=== PATIENT | female | born 1955 | race Caucasian/White ===

== ENCOUNTER 2018-03-02 20:29 | Emergency (ER) | payer MEDICARE, MEDICAID ==
[~2018-03-02] VITALS: Ht 152.4 cm; Wt 54.4 kg
--- NOTE | 2018-03-02 20:33 | NUR ---
PT BIBPA for Altered Mental Status and refusing antibiotic for DX of UTI. PT AXOX1, non-verbal, obeys commands. Respirations even and unlabored. VSS. PT put on the monitor and waiting eval from ER provider.
[2018-03-02 21:02] LABS: BASOPHILS # (AUTO) 0.1 /CMM (0.0-0.2); BASOPHILS % (AUTO) 1.5 % (0.0-2.0); EOSINOPHILS % (AUTO) 2.3 % (0.0-6.0); HEMATOCRIT 42 % (33-45); HEMOGLOBIN 14.3 g/dL (11.5-14.8); LYMPHOCYTES # (AUTO) 1.4 /CMM (0.8-4.8); LYMPHOCYTES % (AUTO) 25.7 % (20.0-44.0); MEAN CORPUSCULAR HGB CONC 34 g/dl (31.0-36.0); MEAN CORPUSCULAR VOLUME 89 fL (82-100); MONOCYTES # (AUTO) 0.4 /CMM (0.1-1.30); NEUTROPHILS # (AUTO) 3.4 /CMM (1.8-8.9); NEUTROPHILS % (AUTO) 63.5 % (43.0-81.0); PLATELET COUNT (AUTO) 154 /CMM (150-450); RED BLOOD CELL COUNT(AUTO) 4.72 MIL/uL (4.0-5.2); WHITE BLOOD COUNT (AUTO) 5.3 K/uL (4.3-11.0)
[2018-03-02] MEDS: IV NS 0.9% 1,000 ML BAG IV ONE (21:04)
[2018-03-02] MEDS: PIPERACILLIN /TAZOBACTAM 3.375 G in IV D5W 50 ML IV ONE (21:05)
[2018-03-02] MEDS ORDERED: LORAZEPAM INJ 2 MG/ML VIAL ONE (21:16)
--- NOTE | 2018-03-02 21:18 | NUR ---
Pt taken to CT, refusing to lay down.
[2018-03-02 21:22] LABS: CALCIUM, SERUM 9.3 mg/dL (8.5-10.1); CARBON DIOXIDE 29 mmol/L (21-32); CHLORIDE 102 mmol/L (98-107); CREATININE 0.8 mg/dL (0.6-1.3); GLUCOSE 115 mg/dL (74-106); POTASSIUM 3.7 mmol/L (3.5-5.1); SODIUM SERUM 139 mmol/L (136-145); UREA NITROGEN, BLOOD 18 mg/dL (7-18)
[2018-03-02 21:29] LABS: ALANINE AMINOTRANSFERASE 58 U/L (12-78); ALBUMIN 3.5 g/dL (3.4-5.0); ALCOHOL, BLOOD < 3 mg/dL (0-0); ALKALINE PHOSPHATASE 95 U/L (46-116); ASPARTATE AMINOTRANSFERASE 48 U/L (15-37); BILIRUBIN,DIRECT 0.3 mg/dL (0.0-0.2); BILIRUBIN,TOTAL 0.9 mg/dL (0.2-1.0); TOTAL PROTEIN, SERUM 8.2 g/dL (6.4-8.2)
--- NOTE | 2018-03-02 21:34 | NUR ---
PT more alert and aware of surroundings, verbal responsive. Able to state the reason she is here, pt stating she was having a panic attack earlier, now pt is calm and collective. made aware.
--- NOTE | 2018-03-02 21:40 | NUR ---
CALLED [facility] TRANSPORT ETA [phone] TRIP #: [id number]
[2018-03-02 21:41] LABS: SERUM AMMONIA 10 umol/L (11-32)
[2018-03-02] MEDS: LORAZEPAM INJ 2 MG/ML VIAL IV ONE (21:41)
[2018-03-02 22:14] LABS: THYROID STIMULATING HORMONE 2.493 uIU/mL (0.358-3.74)
--- NOTE | 2018-03-02 23:01 | NUR ---
GAVE REPORT TO JOSE MARTIN AT [facility] FOR KLEBER. AWARE OF PT'S DISPOSITION AND NEW ORDERS FOR PT.
[2018-03-02 23:05] VITALS: BP 90/52
--- NOTE | 2018-03-02 23:54 | NUR ---
PT TRANSPORTED BACK TO [facility] VIA PRIVATE AMBULANCE WITH 2EMTS, PT LEFT IN STABLE CONDITION.
== END 2018-03-03 ==
LOC: ER 20:35
DX: F41.9 Anxiety disorder, unspecified (principal); N39.0 Urinary tract infection, site not specified; F03.90 Unspecified dementia, unspecified severity, without behavioral disturbance, psychotic disturbance, mood disturbance, and anxiety; F32.9 Major depressive disorder, single episode, unspecified; G47.00 Insomnia, unspecified
CPT/HCPCS: 36415; 70450-TC; 71045-TC; 80048-TC; 80076-TC; 82140-TC; 83605-TC; 84443-TC; 85025-TC; 85730-TC; 87040-TC; G0480; J2060; J2543; J7030; J7060

== ENCOUNTER 2018-03-27 17:17 | Inpatient (IN) | payer MEDICARE, MEDICAID ==
[~2018-03-27] VITALS: Ht 152.4 cm; Wt 65.8 kg
--- NOTE | 2018-03-27 18:00 | NUR ---
PATIENT BIB AMBULANCE, NOTED PATIENT IS CONFUSED. ON ROOM AIR, BREATHING EVENLY AND UNLABORED. CONNECTED TO THE MONITOR AND PULSE OX. IV LINE INITIATED, AND BLOOD DRAWNED. KEPT COMFORTABLE, WILL CONTINUE TO MONITOR ACCORDINGLY.
[2018-03-27] MEDS ORDERED: ACETAMINOPHEN ES 500 MG TABLET ONE (18:08)
[2018-03-27 18:14] LABS: BASOPHILS # (AUTO) 0.1 /CMM (0.0-0.2); BASOPHILS % (AUTO) 1.4 % (0.0-2.0); EOSINOPHILS % (AUTO) 2.4 % (0.0-6.0); HEMATOCRIT 35 % (33-45); HEMOGLOBIN 11.8 g/dL (11.5-14.8); LYMPHOCYTES % (AUTO) 22.4 % (20.0-44.0); MEAN CORPUSCULAR HGB CONC 34 g/dl (31.0-36.0); MEAN CORPUSCULAR VOLUME 90 fL (82-100); MONOCYTES # (AUTO) 0.4 /CMM (0.1-1.30); MONOCYTES % (AUTO) 7.7 % (2.0-12.0); NEUTROPHILS # (AUTO) 3.1 /CMM (1.8-8.9); NEUTROPHILS % (AUTO) 66.1 % (43.0-81.0); PLATELET COUNT (AUTO) 295 /CMM (150-450); RED BLOOD CELL COUNT(AUTO) 3.92 MIL/uL (4.0-5.2); WHITE BLOOD COUNT (AUTO) 4.7 K/uL (4.3-11.0)
[2018-03-27 18:16] LABS: APPEARANCE,URINE Clear (CLEAR); BILIRUBIN,URINE Negative (NEGATIVE); BLOOD, URINE Negative Ery/uL (NEGATIVE); COLOR,URINE Yellow (YELLOW); KETONES,URINE Trace (NEGATIVE); LEUKOCYTE ESTERASE ,URINE Trace (NEGATIVE); NITRITE, URINE Negative (NEGATIVE); PROTEIN,URINE Negative (NEGATIVE); UGLUCOSE Negative (NEGATIVE); UROBILINOGEN,URINE >=8.0 EU/dL (0.2)
[2018-03-27] MEDS ORDERED: ACETAMINOPHEN ES 500 MG TABLET PO ONE (18:30)
[2018-03-27] MEDS ORDERED: IV NS 0.9% 1,000 ML BAG IV ONE ×2 (18:30→19:30)
[2018-03-27 18:41] LABS: ALANINE AMINOTRANSFERASE 29 U/L (12-78); ALBUMIN 1.9 g/dL (3.4-5.0); ALKALINE PHOSPHATASE 71 U/L (46-116); ASPARTATE AMINOTRANSFERASE 29 U/L (15-37); BILIRUBIN,DIRECT 0.2 mg/dL (0.0-0.2); BILIRUBIN,TOTAL 0.5 mg/dL (0.2-1.0); CARBON DIOXIDE 29 mmol/L (21-32); CHLORIDE 107 mmol/L (98-107); CREATININE 0.7 mg/dL (0.6-1.3); GLUCOSE 93 mg/dL (74-106); POTASSIUM 3.6 mmol/L (3.5-5.1); SODIUM SERUM 141 mmol/L (136-145); TOTAL PROTEIN, SERUM 6.3 g/dL (6.4-8.2); UREA NITROGEN, BLOOD 8 mg/dL (7-18)
[2018-03-27 18:45] LABS: BACTERIA,URINE Few /HPF (None Seen); RBC,URINE NONE SEEN /HPF (0-2); SQUAMOUS EPITHELIAL CELL,UR Few /HPF (None Seen)
--- NOTE | 2018-03-27 19:23 | NUR ---
ENDORSED TO JHONATAN RN FOR KLEBER.
--- NOTE | 2018-03-27 19:24 | NUR ---
RECEIVED REPORT FROM HAMMAD MCINTOSH FOR KLEBER. PT RESTING IN BED WITH NO S/S NO ACUTE DISTRESS NOTED. WILL CONTINUE TO MONITOR PT FOR SAFETY AND COMFORT.
--- NOTE | 2018-03-27 20:47 | NUR ---
REPORT GIVEN TO SUZI GONZALEZ FOR KLEBER.
[2018-03-27 21:00] VITALS: BP 141/83
--- NOTE | 2018-03-27 21:00 | NUR ---
PHOTOGRAPHIC PROCESS WORKERTABLET REPAIR NOTES, RECEIVED PATIENT FROM ER DEPARTMENT VIA STRETCHER ACCOMPANIED BY 2 STAFF IN STABLE CONDITION, NO ACUTE DISTRESS NOTED AT THIS TIME, AWAKE AND ALERT ONLY TO NAME, BREATHING EVEN AND UNLABORED, NO S/S OF SOB, ON 2LPM VIA NC, UNDER MEDICAL SERVICES OF DR PRESTON MARQUEZ, WITH ADMITTING DIAGNOSES OF LACTIC ACIDOSIS AND POSSIBLE UTI/PNA, SKIN AFEBRILE AND INTACT, SACRA REDNESS NOTED, PIV ACCESS IN RIGHT AND LEFT AC PATENT AND INTACT, BED BATH PROVIDED UPON ADMISSION, DENIES PAIN OR DISCOMFORT, DRY AND CLEAN AND WELL REPOSITIONED, CALL LIGHT W/I REACH, WILL CONTINUE TO MONITOR CLOSELY AND F/U WITH MD FOR FURTHER ORDERS.
[2018-03-27] MEDS ORDERED: MAG HYDROX/AL HYDROX/SIMETH 30 ML UDC PO PRN (21:30)
[2018-03-27] MEDS ORDERED: MAGNESIUM HYDROXIDE 30 ML UDC PO PRN (21:30)
[2018-03-27] MEDS ORDERED: ONDANSETRON HCL/PF 4 MG/2 ML VIAL IVP PRN (21:30)
[2018-03-27] MEDS ORDERED: ZOLPIDEM TARTRATE 5 MG TABLET PO PRN (21:30)
[2018-03-27] MEDS ORDERED: HYDROCODONE/APAP 5/325MG 1 EACH TABLET PO PRN (21:30)
[2018-03-27] MEDS ORDERED: ACETAMINOPHEN 325 MG TABLET PO PRN (21:30)
[2018-03-27] MEDS ORDERED: Z GUARD REMEDY 2 OZ OINT TP PRN (21:30)
[2018-03-27] MEDS ORDERED: MEROPENEM 500 MG VIAL IV ONE (23:19)
[2018-03-27] MEDS: MEROPENEM 500 MG in IV NS 0.9% 50 ML IV SCH (23:20)
[2018-03-27] MEDS: IV NS 0.9% 1,000 ML IV PRN (23:21)
[2018-03-28] VITALS: BP 95/56
[2018-03-28 04:00] VITALS: BP 139/74
[2018-03-28] MEDS: ENOXAPARIN SODIUM 40 MG/0.4 ML DISP.SYRIN SQ SCH (04:59)
[2018-03-28] MEDS ORDERED: MEROPENEM 500 MG VIAL IV ONE (05:23)
[2018-03-28] MEDS: MEROPENEM 500 MG in IV NS 0.9% 50 ML IV SCH ×3 (05:27→21:13)
[2018-03-28 06:37] LABS: CALCIUM, SERUM 7.5 mg/dL (8.5-10.1); CREATININE 0.5 mg/dL (0.6-1.3); EOSINOPHILS % (AUTO) 2.5 % (0.0-6.0); HEMATOCRIT 32 % (33-45); HEMOGLOBIN 10.8 g/dL (11.5-14.8); LYMPHOCYTES % (AUTO) 24.4 % (20.0-44.0); MEAN CORPUSCULAR HGB CONC 34 g/dl (31.0-36.0); MEAN CORPUSCULAR VOLUME 88 fL (82-100); MONOCYTES # (AUTO) 0.3 /CMM (0.1-1.30); MONOCYTES % (AUTO) 7.6 % (2.0-12.0); NEUTROPHILS # (AUTO) 2.6 /CMM (1.8-8.9); NEUTROPHILS % (AUTO) 64.5 % (43.0-81.0); PHOSPHORUS 2.5 mg/dL (2.5-4.9); PLATELET COUNT (AUTO) 214 /CMM (150-450); POTASSIUM 3.7 mmol/L (3.5-5.1); RED BLOOD CELL COUNT(AUTO) 3.62 MIL/uL (4.0-5.2); WHITE BLOOD COUNT (AUTO) 4.1 K/uL (4.3-11.0)
--- NOTE | 2018-03-28 06:45 | NUR ---
ENVIRONMENTAL EPIDEMIOLOGISTFORECLOSURE SPECIALIST NOTES, PATIENT SLEEPING AT THIS TIME, , BREATHING EVEN AND UNLABORED, NO S/S OF SOB, ON 2LPM VIA NC, SKIN AFEBRILE AND INTACT, PIV ACCESS IN RIGHT AND LEFT AC PATENT AND INTACT, NS 0.9% INFUSING WELL AND PATIENT TOLERATED WELL, DURING THE NIGHT ON CONTINUOUS MONITORING FOR POSSIBLE URINARY RETENTION, PER YFN, PATIENT VOID THROUGHOUT THE SHIFT X4, INFORM YFN AND PER HER NOT FC AT THIS TIME, DRY AND CLEAN AND WELL REPOSITIONED, CALL LIGHT W/I REACH, NPO PER YFN TILL SWALLOW EVAL DONE, WILL ENDORSE TO ONCOMING NURSE FOR CONTINUITY OF CARE. Addendum: 03/28/18 at 2009 by JEROME GALVIN RN CLOSING NOTES.
[2018-03-28] MEDS ORDERED: TEMA7.5C12 PO (07:53)
[2018-03-28] MEDS ORDERED: ALLA266C2 TP (07:53)
[2018-03-28] MEDS ORDERED: ARIP5TAB10 PO (07:53)
[2018-03-28] MEDS ORDERED: MAG30ORA PO (07:53)
[2018-03-28] MEDS ORDERED: VENL150C2 PO (07:53)
[2018-03-28] MEDS ORDERED: DOCU-141 PO (07:53)
[2018-03-28] MEDS ORDERED: MERO500V IV (07:53)
[2018-03-28] MEDS ORDERED: LORA0.5T PO (07:53)
[2018-03-28] MEDS ORDERED: ACET-868 PO (07:53)
[2018-03-28] MEDS ORDERED: TRAZ-182 PO (07:53)
[2018-03-28 08:00] VITALS: BP 120/56
--- NOTE | 2018-03-28 08:00 | NUR ---
MS RN NOTES PATIENT IN BED RESTING ALERT, ORIENTED X1 CONFUSED. PATIENT CHOOSES TO SPEAK OCCASIONALLY. BED IN LOW LOCKED POSITION. CALL LIGHT WITHIN REACH. WILL CONTINUE TO MONITOR.
--- NOTE | 2018-03-28 11:00 | NUR ---
RN NOTES PATIENT EVALUATED BY SPEECH THERAPIST CLEARED FOR PUREED DIET. ORDERS PLACED.
[2018-03-28 12:00] VITALS: BP 106/60
--- NOTE | 2018-03-28 12:41 | NUR ---
CHARGE NOTES DC TELEMETRY PER DR. JACKSON
[2018-03-28] MEDS: IV NS 0.9% 1,000 ML IV PRN (14:55)
[2018-03-28 16:00] VITALS: BP_SYST 103; BP_SYST 110; BP_DIAS 54; BP_DIAS 69
[2018-03-28] MEDS: ENSURE ENLIVE 237 ML LIQUID (VANILLA) PO SCH (16:56)
--- NOTE | 2018-03-28 19:01 | NUR ---
MS RN NOTES PATIENT IN BED RESTING NO SOB OR ACUTE DISTRESS NOTED. PATIENT ALERT, ORIENTED X1. ALL DUE MEDICATIONS ADMINISTERED, ALL NEEDS MET. ZOHRA INFORMED THAT PATIENTS MED RECON NEEDS TO BE REVIEWED. ENDORSED CARE TO PM SHIFT.
--- NOTE | 2018-03-28 19:30 | NUR ---
SUPPORT SERVICE TECH INITIAL NOTES, PATIENT AWAKE A/O TO SELF, RESISTANT TO CARE AT TIMES, ENCOURAGEMENT AND REASSURANCE PROVIDED, BREATHING EVEN AND UNLABORED, NO S/S OF SOB, ON 2LPM VIA NC, , PIV ACCESS IN RIGHT AND LEFT AC PATENT AND INTACT, NS 0.9% INFUSING WELL AND PATIENT TOLERATED WELL, DRY AND CLEAN AND WELL REPOSITIONED, CALL LIGHT W/I REACH, BED LOCKED AND IN LOW POSITION, WILL CONTINUE TO MONITOR CLOSELY.
[2018-03-28 20:00] VITALS: BP 133/85
[2018-03-29 04:00] VITALS: BP 110/61
[2018-03-29] MEDS: MEROPENEM 500 MG in IV NS 0.9% 50 ML IV SCH (05:08)
[2018-03-29] MEDS: ENOXAPARIN SODIUM 40 MG/0.4 ML DISP.SYRIN SQ SCH (05:09)
[2018-03-29] MEDS: IV NS 0.9% 1,000 ML IV PRN (06:36)
[2018-03-29 06:38] LABS: CALCIUM, SERUM 8.1 mg/dL (8.5-10.1); CREATININE 0.5 mg/dL (0.6-1.3); POTASSIUM 3.8 mmol/L (3.5-5.1)
[2018-03-29 06:41] LABS: EOSINOPHILS % (AUTO) 1.6 % (0.0-6.0); HEMATOCRIT 35 % (33-45); HEMOGLOBIN 11.7 g/dL (11.5-14.8); LYMPHOCYTES # (AUTO) 1.2 /CMM (0.8-4.8); LYMPHOCYTES % (AUTO) 22.7 % (20.0-44.0); MEAN CORPUSCULAR HGB CONC 34 g/dl (31.0-36.0); MEAN CORPUSCULAR VOLUME 89 fL (82-100); MONOCYTES # (AUTO) 0.3 /CMM (0.1-1.30); MONOCYTES % (AUTO) 5.4 % (2.0-12.0); NEUTROPHILS # (AUTO) 3.5 /CMM (1.8-8.9); NEUTROPHILS % (AUTO) 69.3 % (43.0-81.0); PLATELET COUNT (AUTO) 256 /CMM (150-450); RED BLOOD CELL COUNT(AUTO) 3.92 MIL/uL (4.0-5.2); WHITE BLOOD COUNT (AUTO) 5.1 K/uL (4.3-11.0)
--- NOTE | 2018-03-29 06:50 | NUR ---
RIB STIFFENER AND HEEL DIPPER ENDING NOTES, PATIENT SLEEPING AT THIS TIME, BUT EASILY AROUSABLE TO VERBAL STIMULI, BREATHING EVEN AND UNLABORED, NO S/S OF SOB, ON 2LPM VIA NC, , PIV ACCESS IN RIGHT AND LEFT AC PATENT AND INTACT, NS 0.9% INFUSING WELL AND PATIENT TOLERATED WELL, DRY AND CLEAN AND WELL REPOSITIONED, CALL LIGHT W/I REACH, BED LOCKED AND IN LOW POSITION, WITH EXCELLENT URINE OUTPUT X6 VOIDS DURING THE NIGHT, NO CHANGE IN CONDITION, WILL ENDORSE CONTINUITY OF CARE TO ONCOMING NURSE.
--- NOTE | 2018-03-29 07:00 | NUR ---
MS RN NOTES RECEIVED PT IN BED, PT STATED: "I JUST WANT TO SLEEP." NO S/SX OF DISTRESS. ON ROOM AIR AT 95%. PER PM SHIFT PT HAD 6 WET DIAPERS AND NOT RETAINING URINE. RAC/LAC IV SITES NO S/SX OF INFECTION. BED IN LOCKED/LOWEST POSITION. CALL LIGHT IN REACH. WILL CONT TO MONITOR.
[2018-03-29 08:00] VITALS: BP 100/58
[2018-03-29] MEDS: ENSURE ENLIVE 237 ML LIQUID (VANILLA) PO SCH ×3 (08:32→17:51)
[2018-03-29 12:00] VITALS: BP 116/68
[2018-03-29] MEDS: MEROPENEM 500 MG in IV NS 0.9% 100 ML IV SCH ×2 (12:39→21:02)
--- NOTE | 2018-03-29 14:10 | NUR ---
MS RN NOTES PT REFUSES CARE, REPOSITIONING. PT EVALS. PT IS WITHDRAWN. HAS POOR APPETITE. DISCUSSED WITH DR CARRERA.
--- NOTE | 2018-03-29 15:00 | NUR ---
MS RN NOTES NOTIFIED PT OF NEED TO CATHETERIZE FOR URINE CX PER MD ORDER. PT REFUSED. PT STATES: "I JUST WANT TO BE LEFT ALONE. IT'S TOO EARLY IN THE MORNING" . PT IS A/OX1. PT USES DIAPER FOR INCONTINENCE. WILL ENDORSE TO PM SHIFT.
[2018-03-29 16:00] VITALS: BP 114/70
--- NOTE | 2018-03-29 19:00 | NUR ---
MS RN NOTES PT RESTING IN BED; ENDORSED PT TO PM SHIFT FOR KLEBER. NO S/SX OF DISTRESS NOTED. BED IN LOCKED/LOWEST POSITION. CALL LIGHT IN REACH.
[2018-03-29 20:00] VITALS: BP 129/77
[2018-03-30] MEDS: IV NS 0.9% 1,000 ML IV PRN (01:37)
[2018-03-30 04:00] VITALS: BP 115/46
[2018-03-30] MEDS: ENOXAPARIN SODIUM 40 MG/0.4 ML DISP.SYRIN SQ SCH (05:04)
[2018-03-30] MEDS: MEROPENEM 500 MG in IV NS 0.9% 100 ML IV SCH ×2 (05:05→12:27)
[2018-03-30 07:24] LABS: BASOPHILS % (AUTO) 0.5 % (0.0-2.0); HEMATOCRIT 41 % (33-45); HEMOGLOBIN 13.6 g/dL (11.5-14.8); LYMPHOCYTES # (AUTO) 1.3 /CMM (0.8-4.8); LYMPHOCYTES % (AUTO) 18.4 % (20.0-44.0); MEAN CORPUSCULAR HGB CONC 33 g/dl (31.0-36.0); MEAN CORPUSCULAR VOLUME 89 fL (82-100); MONOCYTES # (AUTO) 0.4 /CMM (0.1-1.30); MONOCYTES % (AUTO) 5.4 % (2.0-12.0); NEUTROPHILS # (AUTO) 5.4 /CMM (1.8-8.9); NEUTROPHILS % (AUTO) 74.7 % (43.0-81.0); PLATELET COUNT (AUTO) 404 /CMM (150-450); RED BLOOD CELL COUNT(AUTO) 4.59 MIL/uL (4.0-5.2); WHITE BLOOD COUNT (AUTO) 7.3 K/uL (4.3-11.0)
--- NOTE | 2018-03-30 08:00 | NUR ---
RN NOTES PT AWAKE IN BED; VERBALLY RESPONSIVE. NO INDISCATION OF ANY PAIN OR DISCOMFORT NOTED. RECEIVED PT WITH NO IV ACCESS, ATTEMPTED BY PT REFUSED. PT ALSO REFUSED BREAKFAST WHEN OFFERED. SAFETY ENSURED WITH CALL LIGHT WITHIN REACH.
[2018-03-30] MEDS: ENSURE ENLIVE 237 ML LIQUID (VANILLA) PO SCH ×3 (09:15→17:10)
--- NOTE | 2018-03-30 12:01 | NUR ---
rn notes pt seen and assessed by Dr Saini; informed MD that pt is uncooperative, no iv access and refused placement
--- NOTE | 2018-03-30 12:28 | NUR ---
rn notes not able to administer scheduled ivatb, pt has no iv access and refused placement; Dr Saini in the unit and aware
--- NOTE | 2018-03-30 18:23 | NUR ---
rn notes pt refused skin check / assessment prior to discharge. tel report given to HAMMAD Lou ([facility]) ; med list faxed as requested. pt awake and alert; nad, no c/o pain made.
--- NOTE | 2018-03-30 18:57 | NUR ---
rn dc notes discharge pt to [facility] via ambulance in stable condition.
== END 2018-03-30 18:30 | DRG 871 ==
LOC: ER 17:22 → MEDSG1 20:25 → TELE1 20:59 → MEDSG1 03-28 11:57
PROVIDERS: ADMIT Nurse Practitioner Acute Care; ATTEND Family Medicine
DX: A41.9 Sepsis, unspecified organism (principal); R53.2 Functional quadriplegia; E43 Unspecified severe protein-calorie malnutrition; J18.9 Pneumonia, unspecified organism; N39.0 Urinary tract infection, site not specified; E87.2 Acidosis; D68.59 Other primary thrombophilia; F23 Brief psychotic disorder; Z16.12 Extended spectrum beta lactamase (ESBL) resistance; Z87.440 Personal history of urinary (tract) infections; F41.9 Anxiety disorder, unspecified; F32.9 Major depressive disorder, single episode, unspecified; G31.84 Mild cognitive impairment of uncertain or unknown etiology; E83.51 Hypocalcemia; B96.20 Unspecified Escherichia coli [E. coli] as the cause of diseases classified elsewhere; R62.7 Adult failure to thrive
CPT/HCPCS: 36415; 71045-TC; 80048-TC; 80076-TC; 81000-TC; 83605-TC; 83735-TC; 84100-TC; 84484-TC; 85025-TC; 85730-TC; 87040-TC; 87086-TC; 92611-TC; A4216; G0378; J1650; J2185; J7030

== ENCOUNTER 2019-09-07 23:05 | Inpatient (IN) | payer MEDICARE, OTHER ==
[~2019-09-07] VITALS: Ht 152.4 cm; Wt 64.4 kg
[~2019-09-07 23:05] MED LIST: ACET-868 PO; ALLA266C2 TP; ARIP5TAB10 PO; DOCU-141 PO; LORA0.5T PO; MAG30ORA PO; MERO500V21 IV; TEMA7.5C12 PO; TRAZ-182 PO; VENL150C2 PO
--- NOTE | 2019-09-07 23:20 | NUR ---
PATIENT CAME TO ER BED 6 C/O FEVER 1x HOUR AGO. PATIENT DENIES ANY OTHER ISSUES BESIDES THE LUMP ON HER LEFT FOREARM SINCE SHE WAS LITTLE, SHE STATES THAT THEY ARE FAT DEPOSITS. AAOX4. NO SOB. BREATHING EVENLY AND UNLABORED ON ROOM AIR. CONNECTED TO MONITOR.
[2019-09-07] MEDS ORDERED: ACETAMINOPHEN 325 MG TABLET PO ONE (23:30)
[2019-09-07 23:44] LABS: BASOPHILS # (AUTO) 0.1 /CMM (0.0-0.2); BASOPHILS % (AUTO) 0.6 % (0.0-2.0); HEMATOCRIT 42 % (33-45); HEMOGLOBIN 13.7 g/dL (11.5-14.8); LYMPHOCYTES # (AUTO) 1.1 /CMM (0.8-4.8); LYMPHOCYTES % (AUTO) 7.4 % (20.0-44.0); MEAN CORPUSCULAR HGB CONC 33 g/dl (31.0-36.0); MEAN CORPUSCULAR VOLUME 92 fL (82-100); MONOCYTES # (AUTO) 0.6 /CMM (0.1-1.30); MONOCYTES % (AUTO) 4.1 % (2.0-12.0); NEUTROPHILS # (AUTO) 13.3 /CMM (1.8-8.9); NEUTROPHILS % (AUTO) 87.9 % (43.0-81.0); PLATELET COUNT (AUTO) 95 /CMM (150-450); RED BLOOD CELL COUNT(AUTO) 4.55 MIL/uL (4.0-5.2); WHITE BLOOD COUNT (AUTO) 15.1 K/uL (4.3-11.0)
--- NOTE | 2019-09-07 23:50 | NUR ---
PATIENT AMBULATED TO THE RESTROOM WITH ASSISTANCE
--- NOTE | 2019-09-07 23:57 | NUR ---
URINE COLLECTED AND SENT TO LAB.
[2019-09-08] MEDS ORDERED: VANCOMYCIN 1 GM in IV D5W 250 ML IV ONE ×2
[2019-09-08] MEDS ORDERED: VANCOMYCIN 1 GM VIAL ONE (00:09)
[2019-09-08] MEDS ORDERED: ACETAMINOPHEN ES 500 MG TABLET ONE (00:12)
[2019-09-08 00:23] LABS: APPEARANCE,URINE CLOUDY (CLEAR); BILIRUBIN,URINE NEGATIVE (NEGATIVE); BLOOD, URINE MODERATE Ery/uL (NEGATIVE); COLOR,URINE ORANGE (YELLOW); KETONES,URINE TRACE (NEGATIVE); LEUKOCYTE ESTERASE ,URINE TRACE (NEGATIVE); NITRITE, URINE POSITIVE (NEGATIVE); PROTEIN,URINE 30 mg/dl (NEGATIVE); UGLUCOSE NEGATIVE (NEGATIVE)
[2019-09-08 00:31] LABS: ALANINE AMINOTRANSFERASE 58 U/L (12-78); ALBUMIN 3.1 g/dL (3.4-5.0); ALKALINE PHOSPHATASE 97 U/L (46-116); ASPARTATE AMINOTRANSFERASE 41 U/L (15-37); BILIRUBIN,DIRECT 0.4 mg/dL (0.0-0.2); CALCIUM, SERUM 9.2 mg/dL (8.5-10.1); CARBON DIOXIDE 26 mmol/L (21-32); CHLORIDE 104 mmol/L (98-107); CREATININE 1.1 mg/dL (0.6-1.3); GLUCOSE 150 mg/dL (74-106); POTASSIUM 3.7 mmol/L (3.5-5.1); SODIUM SERUM 138 mmol/L (136-145); TOTAL PROTEIN, SERUM 7.9 g/dL (6.4-8.2); UREA NITROGEN, BLOOD 26 mg/dL (7-18)
[2019-09-08 00:45] LABS: BACTERIA,URINE Many /HPF (None Seen); RBC,URINE 21-50 /HPF (0-2); SQUAMOUS EPITHELIAL CELL,UR Moderate /HPF (None Seen); WBC,URINE 81-100 /HPF (0-3)
[2019-09-08] MEDS ORDERED: ONDANSETRON HCL/PF 4 MG/2 ML VIAL IVP PRN (01:30)
[2019-09-08] MEDS ORDERED: Z GUARD REMEDY 2 OZ OINT TP PRN (01:30)
[2019-09-08] MEDS ORDERED: MAGNESIUM HYDROXIDE 30 ML UDC PO PRN ×2 (01:30→12:00)
[2019-09-08] MEDS ORDERED: MAG HYDROX/AL HYDROX/SIMETH 30 ML UDC PO PRN (01:30)
--- NOTE | 2019-09-08 01:44 | NUR ---
NOTIFIED OF LOW BLOOD PRESSURE, ORDERED TO GIVE 1L OF NORMAL SALINE IV.
--- NOTE | 2019-09-08 01:48 | NUR ---
PATIENT IS GIVEN 1Liter OF NORMAL SALINE IV BOLUS.
--- NOTE | 2019-09-08 02:25 | NUR ---
ATTEMPTED TO GIVE REPORT TO STAFF, STAFF STATES THAT THEY ARE TALKING TO GLENN COPELAND DNP FOR COVID-19 TEST. STATES THAT THEY WILL CALL BACK.
[2019-09-08 03:00] VITALS: BP 112/66
--- NOTE | 2019-09-08 03:07 | NUR ---
REPORT GIVEN ANUM CUEVA FOR KLEBER.
--- NOTE | 2019-09-08 03:10 | NUR ---
MS/RN NEW ADMISSION NOTES RECEIVED PATIENT FROM ER, ARRIVED ON A GURNEY ACCOMPANIED BY RN, PATIENT WAS BROUGHT FROM NURSING HOMEPATIENT WAS ADMITTED DUE TO FEVER OF 100.2 BUT NO COVID SWAB TAKEN PER ER, TYLENOL 650 MG PO GIVEN AND FEVER SUBSIDED.DEG F AND WITH ADMITTING DX OF CELLULITIS OF RIGHT LEG, ALERT, ORIENTED X3, ABLE TO FOLLOW SIMPLE COMMANDS, DENIES PAIN, HAD ANTIBIOTIC TREATMENT AND PATIENT ABLE TO ACKNOWLEDGED AND COOPERATE WITH NURSE/CARE. RESPIRATIONS EVEN AND UNLABORED, BELONGINGS CHECK. ROOM ORIENTATION PROVIDED, BED ALARM, CALL LIGHTS WITHIN REACH. PATIENT WITH IV ACCESS ON [facility] WITH IVF TI START AAT RATE OF 75 ML, TO ADMINISTER ROCEPHINE ORDERED IV, PHOTO TAKEN OF RIGHT LEG CELLULITIS, LAST TEMPERATURE CHECK AFEBRILE, KEPR COMFORTABLE. WILL MONITOR.
--- NOTE | 2019-09-08 03:29 | NUR ---
PATIENT TAKEN TO ADMITTING ROOM.
[2019-09-08] MEDS ORDERED: CEFTRIAXONE 1 G VIAL ONE (03:51)
[2019-09-08] MEDS: CEFTRIAXONE 1 G in IV D5W 50 ML IV SCH (04:25)
[2019-09-08] MEDS: IV NS 0.9% 1,000 ML IV PRN ×2 (04:27→18:27)
[2019-09-08 04:42] LABS: BAND % (MANUAL) 10 % (0.0-5.0); LYMPHOCYTES % (MANUAL) 5 % (16-48); NEUTROPHILS % (MANUAL) 81 (42-76)
[2019-09-08 04:43] LABS: MONOCYTES % (MANUAL) 4 % (0-11.0)
[2019-09-08 05:03] LABS: BASOPHILS % (AUTO) 0.4 % (0.0-2.0); HEMATOCRIT 37 % (33-45); HEMOGLOBIN 12.4 g/dL (11.5-14.8); LYMPHOCYTES # (AUTO) 1.3 /CMM (0.8-4.8); LYMPHOCYTES % (AUTO) 12.9 % (20.0-44.0); MEAN CORPUSCULAR HGB CONC 34 g/dl (31.0-36.0); MEAN CORPUSCULAR VOLUME 92 fL (82-100); MONOCYTES # (AUTO) 0.6 /CMM (0.1-1.30); MONOCYTES % (AUTO) 6.1 % (2.0-12.0); NEUTROPHILS # (AUTO) 8.3 /CMM (1.8-8.9); NEUTROPHILS % (AUTO) 80.6 % (43.0-81.0); PLATELET COUNT (AUTO) 65 /CMM (150-450); RED BLOOD CELL COUNT(AUTO) 3.99 MIL/uL (4.0-5.2); WHITE BLOOD COUNT (AUTO) 10.4 K/uL (4.3-11.0)
[2019-09-08 05:15] LABS: BAND % (MANUAL) 7 % (0.0-5.0); LYMPHOCYTES % (MANUAL) 9 % (16-48); MONOCYTES % (MANUAL) 4 % (0-11.0); NEUTROPHILS % (MANUAL) 80 (42-76)
[2019-09-08 05:18] LABS: CALCIUM, SERUM 8.1 mg/dL (8.5-10.1); CREATININE 0.9 mg/dL (0.6-1.3); MAGNESIUM 1.7 mg/dL (1.8-2.4); POTASSIUM 4.2 mmol/L (3.5-5.1)
[2019-09-08 05:28] LABS: THYROID STIMULATING HORMONE 1.473 uIU/mL (0.358-3.74)
--- NOTE | 2019-09-08 05:32 | NUR ---
MS/RN NOTES BITA APODACA FROM [facility] CALLED AND INFORMED THAT PATIENT GOT TESTED WITH COVID LAST 09/05/2019 AWAITING FOR THE RESULT AND LAST 08/29/2019 COVID TEST WAS NEGATIVE.
--- NOTE | 2019-09-08 06:12 | NUR ---
315-2 MS/RN NOTES PAATIENT ABLE TO SLEEP DURING THE NIGHT, ALERT, ORIENTED X3, RESPIRATIONS EVEN AND UNLABORED, CAN FOLLOW SIMPLE COMMANDS, COOPERATIVE TO CARE, PATIENT ATTENDED TO ALL NEEDS, KEPT COMFORTABLE, IV ANTIBIOTIC INFUSED, IV FLUIDS RUNNING AT 75ML/HR,
--- NOTE | 2019-09-08 06:14 | NUR ---
MS/RN [place] AWARE REGARDING PATIENT COVID SWAB STATUS PENDING 09/04 PER BITA APODACA OF [place], TO COLLECT SWAB COVID AND ISOLATE PATIENT TO R/O COVID. DVT PUMP TO ORDER BUT NOT TO ORDER DVT PPX MEDICATION PLATELET IS LOW AT 65.
[2019-09-08] MEDS ORDERED: FEE PK DOSING 1 MIN EA MC ONE (07:11)
--- NOTE | 2019-09-08 07:30 | NUR ---
RN OPENING NOTE Patient is resting in bed, A/O x3, showing no signs of acute distress or SOB, stable on RA. RLE redness/swelling noted. IV line in the LAC#18g is clean and intact. Bed is in lowest position, side rails x3 in upright position, call light is within reach, fall safety and aspiration precautions enforced. Isolation precautions to R/O COVID enforced. Will continue with plan of care.
--- NOTE | 2019-09-08 07:34 | NUR ---
covid swab test collected.patient tolerated well.
[2019-09-08 08:00] VITALS: BP 125/60
[2019-09-08] MEDS ORDERED: ARIP5TAB10 PO (08:28)
[2019-09-08] MEDS ORDERED: MAGN400O6 PO (08:28)
[2019-09-08] MEDS ORDERED: VENL37.55 PO (08:28)
--- NOTE | 2019-09-08 10:00 | NUR ---
RN NOTE patient transferred to [address] [facility]. Bedside report given to Gregoria CUEVA for KLEBER.
[2019-09-08 10:15] VITALS: BP 116/78
--- NOTE | 2019-09-08 10:15 | NUR ---
TRANSFER FROM [facility] RECEIVED PT TRANSFER FROM [facility]. PT TRANSFERRED TO [facility] FLOOR D/T BEING COVID PENDING. RECEIVED BEDSIDE REPORT FROM LUCITA CUEVA. PT IS AOX3. NO CARDIAC OR RESPIRATORY DISTRESS NOTED. SATURATING WELL ON ROOM AIR. NO SOB NOTED. BREATHING EVEN AND UNLABORED. IV ACCESS NOTED ON L AC G20 INTACT AND PATENT AND FLUSHING WELL WITH NS RUNNING AT 75ML/HR. TOLERATING IV FLUIDS WELL. PT NOTED WITH CELLULITIS ON THE RLE. NOTED WITH SWELLING/NON PITTING EDEMA AND REDNESS. NO OPEN AREAS NOTED TO RLE. CURRENTLY RECIEVING IV ATB. NO ASE NOTED. DVT PUMP APPLIED ON LLE. SAFETY PRECAUTIONS IN PLACE. BED LOCKED AND IN LOW POSITION, SIDE RAILS UP X 2. BED ALARM ON. CALL LIGHT WITHIN REACH. WILL CONT TO MONITOR. VS STABLE. PT IS AFEBRILE.
[2019-09-08] MEDS ORDERED: ACETAMINOPHEN 325 MG TABLET PO PRN (12:00)
[2019-09-08] MEDS: VANCOMYCIN 1 GM in IV D5W 250 ML IV SCH (12:04)
[2019-09-08] MEDS ORDERED: Magnesium 1GM/D5W 100ML PREMIX 100 ML IV SCH (14:00)
--- NOTE | 2019-09-08 14:30 | NUR ---
ABN LABS DR. CHEEK MADE AWARE OF PTS PLATELET LEVEL OF 65 AND MAGNESIUM LEVEL OF 1.7. MD ORDERED MAGNESIUM 1G VIA IV. NOTED AND CARRIED OUT.
[2019-09-08] MEDS ORDERED: Magnesium 1GM/D5W 100ML PREMIX PIGGYBACK IV ONE (15:00)
--- NOTE | 2019-09-08 18:20 | NUR ---
RESTORATION TECHNICIAN CLOSING NOTES PT IN BED AWAKE, ALERT AND ORIENTED X3. NO CARDIAC OR RESPIRATORY DISTRESS NOTED. SATURATING WELL ON ROOM AIR. NO SOB NOTED. BREATHING EVEN AND UNLABORED. IV ACCESS NOTED ON L AC G20 INTACT AND PATENT AND FLUSHING WELL WITH NS RUNNING AT 75ML/HR. TOLERATING IV FLUIDS WELL. PT NOTED WITH CELLULITIS ON THE RLE. NOTED WITH SWELLING/NON PITTING EDEMA AND REDNESS. NO OPEN AREAS NOTED TO RLE. CURRENTLY RECIEVING IV ATB. NO ASE NOTED. DR. CHEEK WAS MADE AWARE TODAY REGARDING LOW PLATELETS. NO NEW ORDERS GIVEN. MAGNESIUM REPLACED TODAY X1 BAG. DVT PUMP APPLIED ON LLE. SAFETY PRECAUTIONS IN PLACE. BED LOCKED AND IN LOW POSITION, SIDE RAILS UP X 2. BED ALARM ON. CALL LIGHT WITHIN REACH. WILL CONT TO MONITOR. VS STABLE. PT IS AFEBRILE. WILL ENDORSE TO NEXT SHIFT.
[2019-09-08 20:00] VITALS: BP 123/82
[2019-09-08] MEDS: DOCUSATE SODIUM 100 MG CAPSULE PO SCH (21:53)
[2019-09-08] MEDS: TRAZODONE 50 MG TABLET PO SCH (21:53)
[2019-09-09] MEDS: CEFTRIAXONE 1 G in IV D5W 50 ML IV SCH (01:10)
[2019-09-09] MEDS: VANCOMYCIN 1 GM in IV D5W 250 ML IV SCH ×2 (01:14→12:58)
[2019-09-09] MEDS: ACETAMINOPHEN 325 MG TABLET PO PRN ×2 (03:36→16:35)
[2019-09-09 04:00] VITALS: BP 116/58
--- NOTE | 2019-09-09 04:15 | NUR ---
RN notes Lab called, spoke with Soc. Message was relayed that the patient is negative for covide-19.
[2019-09-09] MEDS: IV NS 0.9% 1,000 ML IV PRN ×2 (05:53→08:34)
--- NOTE | 2019-09-09 06:00 | NUR ---
RN notes Comfortably resting in bed with no apparent distress. Breathing even and unlabored. Alert and oriented, verbal, non ambulatory. No complaint of pain or discomfort. Vital signs wnl. Covid result was negative. Kept clean and dry. Will endorse to next shift for continuity of care.
[2019-09-09 06:59] LABS: CREATININE 0.7 mg/dL (0.6-1.3); MAGNESIUM 1.8 mg/dL (1.8-2.4); POTASSIUM 3.1 mmol/L (3.5-5.1)
[2019-09-09 08:00] VITALS: BP 96/56
[2019-09-09] MEDS: DOCUSATE SODIUM 100 MG CAPSULE PO SCH ×2 (08:10→20:03)
[2019-09-09] MEDS: VENLAFAXINE XR 37.5 MG CAP.SR.24H PO SCH (08:11)
[2019-09-09] MEDS: ARIPIPRAZOLE 5 MG TABLET PO SCH (08:11)
[2019-09-09 08:30] VITALS: BP 96/56
--- NOTE | 2019-09-09 08:30 | NUR ---
MS RN NOTE PATIENT ARRIVED BY BED FROM [facility]. REPORT RECEIVED FROM YEMI CUEVA. PATIENT IN BED RESTING COMFORTABLY. PATIENT IN NO ACUTE DISTRESS. NO SOB NOTED. PATIENT BREATHING IS EVEN AND UNLABORED. PATIENT BED ALARM IS ON. SAFETY PRECAUTIONS IN PLACE. PATIENT BED IS LOCKED AND IN LOWEST POSITION. CALL LIGHT WITHIN REACH. WILL CONTINUE TO MONITOR.
--- NOTE | 2019-09-09 08:30 | NUR ---
AD TAKER NOTES PT A/OX3, AFEBRILE. COVID NEGATIVE. NON-MONITORED, VSS. TOLERATING RA. RESPIRATIONS ARE EVEN AND UNLABORED, NOT IN ANY ACUTE DISTRESS NOTED. DENIES ANY PAIN, SOB, N/V. MORNING MEDICATIONS GIVEN. PT SEEN BY DR. JACKSON W/ ORDERS TO TRANSFER PT TO [facility]. TRANSFERRED PT TO 203, BEDSIDE ENDORSEMENT GIVEN TO HAMMAD SAMPSON. ALL BELONGINGS SENT WITH PT. PT TRANSFERRED IN STABLE CONDITION.
[2019-09-09] MEDS ORDERED: POTASSIUM CHLORIDE 20 MEQ TAB.PRT.SR PO ONE (09:00)
[2019-09-09 16:00] VITALS: BP 105/66
--- NOTE | 2019-09-09 16:32 | NUR ---
MS RN NOTE PATIENT TEMPERATURE 99.9F. IMPLEMENTED COOLING MEASURES AND TYLENOL PRN GIVEN ORDERED.
--- NOTE | 2019-09-09 18:51 | NUR ---
MS RN CLOSING NOTE PATIENT IN BED RESTING COMFORTABLY. PATIENT IN NO ACUTE DISTRESS. NO SOB NOTED. PATIENT BREATHING IS EVEN AND UNLABORED. PATIENT KEPT CLEAN, DRY AND COMFORTABLE THROUGHOUT SHIFT. PATIENT NEEDS AND CONCERNS ADDRESSED. PATIENT BED ALARM IS ON. SAFETY PRECAUTIONS IN PLACE. PATIENT BED IS LOCKED AND IN LOWEST POSITION. CALL LIGHT WITHIN REACH. WILL ENDORSE CARE TO PM SHIFT FOR KLEBER.
[2019-09-09 20:00] VITALS: BP 105/67
--- NOTE | 2019-09-09 20:00 | NUR ---
MS RN OPENING NOTES RECEIVED PATIENT IN BED, AWAKE, COOPERATIVE, IN HIGH BACK POSITION, A/0 X3, BREATHING AT ROOM AIR, UNLABORED BREATHING, NO SIGNS OF RESPIRATORY DISTRESS, RFA IV ACCESS #22G, PATIENT'S BED ALARM IS ON, SIDE RAILS UP FOR SAFETY.
[2019-09-09] MEDS: VANCOMYCIN 1.25 GM in IV D5W 250 ML IV SCH (20:02)
[2019-09-09] MEDS: TRAZODONE 50 MG TABLET PO SCH (21:07)
[2019-09-10] MEDS: CEFTRIAXONE 1 G in IV D5W 50 ML IV SCH (00:32)
--- NOTE | 2019-09-10 06:43 | NUR ---
MS RN CLOSING NOTES ENDORSED PATIENT IN BED, AWAKE, COOPERATIVE, IN HIGH BACK POSITION, A/0 X3, BREATHING AT ROOM AIR, UNLABORED BREATHING, NO SIGNS OF RESPIRATORY DISTRESS, RFA IV ACCESS #22G, NO REDNESS OR INFILTRATION NOTED, PATIENT'S BED ALARM IS ON, SIDE RAILS UP FOR SAFETY, DUE MEDS GIVEN.
[2019-09-10 06:45] LABS: BASOPHILS % (AUTO) 0.7 % (0.0-2.0); EOSINOPHILS % (AUTO) 2.1 % (0.0-6.0); HEMATOCRIT 35 % (33-45); HEMOGLOBIN 11.6 g/dL (11.5-14.8); LYMPHOCYTES # (AUTO) 1.1 /CMM (0.8-4.8); LYMPHOCYTES % (AUTO) 21.4 % (20.0-44.0); MEAN CORPUSCULAR HGB CONC 34 g/dl (31.0-36.0); MEAN CORPUSCULAR VOLUME 91 fL (82-100); MONOCYTES # (AUTO) 0.4 /CMM (0.1-1.30); MONOCYTES % (AUTO) 7.2 % (2.0-12.0); NEUTROPHILS # (AUTO) 3.6 /CMM (1.8-8.9); NEUTROPHILS % (AUTO) 68.6 % (43.0-81.0); PLATELET COUNT (AUTO) 80 /CMM (150-450); RED BLOOD CELL COUNT(AUTO) 3.78 MIL/uL (4.0-5.2); WHITE BLOOD COUNT (AUTO) 5.3 K/uL (4.3-11.0)
[2019-09-10 06:56] LABS: CALCIUM, SERUM 8.1 mg/dL (8.5-10.1); CREATININE 0.7 mg/dL (0.6-1.3); MAGNESIUM 1.9 mg/dL (1.8-2.4); PHOSPHORUS 2.3 mg/dL (2.5-4.9); POTASSIUM 3.9 mmol/L (3.5-5.1)
--- NOTE | 2019-09-10 07:25 | NUR ---
MS RN OPENING NOTE PATIENT IN BED RESTING COMFORTABLY. PATIENT IN NO ACUTE DISTRESS. NO SOB NOTED. PATIENT BREATHING IS EVEN AND UNLABORED. PATIENT BED ALARM IS ON. SAFETY PRECAUTIONS IN PLACE. PATIENT BED IS LOCKED AND IN LOWEST POSITION. CALL LIGHT WITHIN REACH. WILL CONTINUE TO MONITOR.
[2019-09-10 08:00] VITALS: BP 116/53
[2019-09-10] MEDS: DOCUSATE SODIUM 100 MG CAPSULE PO SCH ×3 (08:17→21:00)
[2019-09-10] MEDS: ARIPIPRAZOLE 5 MG TABLET PO SCH (08:17)
[2019-09-10] MEDS: VANCOMYCIN 1.25 GM in IV D5W 250 ML IV SCH ×2 (08:17→21:01)
[2019-09-10] MEDS: VENLAFAXINE XR 37.5 MG CAP.SR.24H PO SCH (08:19)
--- NOTE | 2019-09-10 08:29 | NUR ---
MS RN NOTES PATIENT REFUSING COLACE 0900 DOSE. EDUCATED RISKS VS BENEFITS. PATIENT CONTINUED TO REFUSE.
[2019-09-10] MEDS ORDERED: NEUTRA PHOS 1 POWD.PACKET PO ONE (13:30)
[2019-09-10 16:00] VITALS: BP 101/56
--- NOTE | 2019-09-10 18:32 | NUR ---
MS RN CLOSING NOTE PATIENT IN BED RESTING COMFORTABLY. PATIENT IN NO ACUTE DISTRESS. NO SOB NOTED. PATIENT BREATHING IS EVEN AND UNLABORED. PATIENT KEPT CLEAN, DRY, AND COMFORTABLE THROUGHOUT SHIFT. PATIENT NEEDS AND CONCERNS ADDRESSED. PATIENT BED ALARM IS ON. SAFETY PRECAUTIONS IN PLACE. PATIENT BED IS LOCKED AND IN LOWEST POSITION. CALL LIGHT WITHIN REACH. WILL ENDORSE CARE TO PM SHIFT FOR KLEBER.
--- NOTE | 2019-09-10 19:26 | NUR ---
MS/RN OPENING NOTES: RECEIVED PATIENT IN BED RESTING COMFORTABLY. VERBALLY RESPONSIVE AND ABLE TO MAKE NEEDS KNOWN. A/OX3. PATIENT IN NO ACUTE DISTRESS. NO SOB NOTED. PATIENT BREATHING IS EVEN AND UNLABORED. IV SITE ON THE RIGHT FA #22G, INTACT, PATENT AND FLUSHING WELL. PATIENT BED ALARM IS ON. SAFETY PRECAUTIONS IN PLACE. PATIENT BED IS LOCKED AND IN LOWEST POSITION. CALL LIGHT WITHIN REACH. WILL CONTINUE TO MONITOR ACCORDINGLY.
[2019-09-10 20:12] VITALS: BP 107/67
[2019-09-10 20:16] VITALS: BP 107/67
[2019-09-10] MEDS: TRAZODONE 50 MG TABLET PO SCH (21:07)
--- NOTE | 2019-09-10 23:48 | NUR ---
MS/RN NOTES: SKIN ASSESSMENT DONE. RIGHT LEG CELLULITIS, AND RIGHT TOE SCAB. PHOTO TAKEN AND FILED IN THE CHART.
[2019-09-11] MEDS: CEFTRIAXONE 1 G in IV D5W 50 ML IV SCH (01:41)
--- NOTE | 2019-09-11 06:57 | NUR ---
MS/RN CLOSING NOTES: PATIENT REMAINS IN BED RESTING COMFORTABLY. REPOSITIONED AND TURNED MUCH PATIENT WOULD ALLOW. REMAINS VERBALLY RESPONSIVE AND ABLE TO MAKE NEEDS KNOWN, A/OX3. PATIENT IN NO ACUTE DISTRESS. NO SOB NOTED. PATIENT BREATHING IS EVEN AND UNLABORED. NO C/O PAIN AT THIS TIME. IV SITE ON THE RIGHT FA #22G, REMAINS INTACT, PATENT AND FLUSHING WELL. ALL NEEDS MET AND RENDERED. PATIENT BED ALARM IS ON. KEPT CLEAN AND DRY, COMFORTABLE AND WARM THROUGH OUT THE SHIFT. SAFETY PRECAUTIONS KEPT IN PLACE. PATIENT BED IS LOCKED AND IN LOWEST POSITION. CALL LIGHT WITHIN REACH. WILL ENDORSE TO AM SHIFT FOR KLEBER.
[2019-09-11 07:10] LABS: CALCIUM, SERUM 8.3 mg/dL (8.5-10.1); CREATININE 0.5 mg/dL (0.6-1.3); PHOSPHORUS 4.1 mg/dL (2.5-4.9); POTASSIUM 3.3 mmol/L (3.5-5.1)
--- NOTE | 2019-09-11 07:23 | NUR ---
MS RN NOTES RECEIVED PT IN BED, ASLEEP, EASILY AROUSED, A/O X2-3. PT TOLERATING RA, WITH NO ACUTE RESPIRATORY DISTRESS NOTED. PT DENIES ANY PAIN OR DISCOMFORT AT THIS TIME. PT DENIES ANY CONCERNS OR QUESTIONS WELL. RFA G22, FLUSHED WITH NS, INTACT AND OPERATIONAL. PT KEPT COMFORTABLE IN BED. CALL LIGHT KEPT WITHIN REACH. PT'S BED IN LOWEST, LOCKED POSITION WITH SR X3. WILL CONTINUE PLAN OF CARE.
[2019-09-11 08:00] VITALS: BP 113/71
[2019-09-11] MEDS: VENLAFAXINE XR 37.5 MG CAP.SR.24H PO SCH (08:49)
[2019-09-11] MEDS: ARIPIPRAZOLE 5 MG TABLET PO SCH (08:49)
[2019-09-11] MEDS: DOCUSATE SODIUM 100 MG CAPSULE PO SCH (08:53)
[2019-09-11] MEDS: VANCOMYCIN 1.25 GM in IV D5W 250 ML IV SCH (08:56)
--- NOTE | 2019-09-11 09:24 | NUR ---
MS RN NOTES IV VANCO SCHEDULED AT 9AM, NOT GIVEN PER VANCO TROUGH LEVEL OF 22. MD/KR AWARE DURING MORNING ROUNDS, PER MD TO FOLLOW PHARMACY PROTOCOL. ALSO, PT FOR POSSIBLE DISCHARGE BACK TO [facility], TO COORDINATE WITH CLINICAL QUALITY ASSURANCE SPECIALIST. WILL CONTINUE PLAN OF CARE.
[2019-09-11] MEDS ORDERED: SULF1TAB48 PO (10:37)
--- NOTE | 2019-09-11 10:39 | NUR ---
Possible discharge to SNF today,spoke with Yoselin- admission at [facility] [phone] and faxed clinicals- Addendum: 09/11/19 at 1039 by SARAH PIERCE RN Amended: Links added.
[2019-09-11] MEDS ORDERED: POTASSIUM CHLORIDE 20 MEQ TAB.PRT.SR PO ONE (11:00)
--- NOTE | 2019-09-11 13:35 | NUR ---
MS FIRST BEATER NOTES PT AWAKE A/O X3. PT TOLERATING RA, WITH NO ACUTE RESPIRATORY DISTRESS NOTED. PT DENIES ANY PAIN OR DISCOMFORT AT THE TIME OF DISCHARGE. RFA G22, REMOVED AND APPLIED DRY DRESSING. PT ABLE TO REVIEW AND SIGN DISCHARGE INSTRUCTIONS AND INVENTORY LIST. ALL BELONGINGS WITH THE PT. SKIN ASSESSED, AND PICTURES TAKEN BY LAST NIGHT NURSE AND FILED ON THE CHART. ALL NEEDS AND CARE ATTENDED. PT LEFT THE UNIT AT 1330 WITH STABLE VITALS TAKEN BY SUPERINTENDENT MENAGERIE. PT TRANSPORTED IN A GURNEY AND VIA AMBULANCE TO THE [facility]. REPORT GIVEN TO ARJUN/HAMMAD AND FAMILY/DAUGHTER/GILDARDO CANO MADE AWARE OF TRANSFER. HOSPITALIST/KR AWARE OF DISCHARGE.
[2019-09-11] MEDS ORDERED: VANCOMYCIN 1 GM in IV D5W 250 ML IV SCH (18:00)
== END 2019-09-11 13:30 | DRG 602 ==
LOC: ER 23:11 → MED 09-08 02:15 → MEDSG1 09-08 10:03 → MEDSG2 09-09 08:18
PROVIDERS: ADMIT Internal Medicine; ATTEND Internal Medicine
DX: L03.115 Cellulitis of right lower limb (principal); G93.41 Metabolic encephalopathy; N17.0 Acute kidney failure with tubular necrosis; E43 Unspecified severe protein-calorie malnutrition; N39.0 Urinary tract infection, site not specified; B96.20 Unspecified Escherichia coli [E. coli] as the cause of diseases classified elsewhere; I95.9 Hypotension, unspecified; E83.42 Hypomagnesemia; F29 Unspecified psychosis not due to a substance or known physiological condition; E88.09 Other disorders of plasma-protein metabolism, not elsewhere classified; Z68.27 Body mass index [BMI] 27.0-27.9, adult
CPT/HCPCS: 36415; 71045-TC; 80048-TC; 80061-TC; 80076-TC; 80202-TC; 81000-TC; 83605-TC; 83735-TC; 84100-TC; 84443-TC; 84484-TC; 85025-TC; 85730-TC; 87040-TC; 87081-TC; 87086-TC; 87186-TC; 93971-TC; G0378; J0696; J3370; J3475; J7030; J7060; U0003-CS

== ENCOUNTER 2022-01-09 10:40 | Emergency (ER) | payer MEDICARE, OTHER ==
[~2022-01-09] VITALS: Ht 167.6 cm; Wt 54.4 kg
[~2022-01-09 10:40] MED LIST changes: -ALLA266C2 TP; -LORA0.5T PO; -MAG30ORA PO; +MAGN400O6 PO; -MERO500V21 IV; +SULF1TAB48 PO; -TEMA7.5C12 PO; -VENL150C2 PO; +VENL37.55 PO
--- NOTE | 2022-01-09 10:52 | NUR ---
TO ER EBD 7. BIBPA FROM [facility] FOR RIGHT EYEBROW LACERATION S/P WITNESSED GLF, NO LOC, NO BLOOD THINNER. ATTACHED TO MONITOR, VITALS ARE WITHIN NORMAL LIMTIS, NO RESP DISTRESS NOTED. AWAITING MD DONALD.
[2022-01-09] MEDS ORDERED: TDAP [DIPH/PERTUSSIS/TET] 0.5 ML VIAL IM ONE ×2 (11:30→11:39)
[2022-01-09] MEDS ORDERED: LIDOCAINE HCL/MPF 1% 30 ML VIAL IJ ONE (11:41)
--- NOTE | 2022-01-09 11:52 | NUR ---
PATIENT TAKEN TO CT VIA DOROTEO
--- NOTE | 2022-01-09 14:04 | NUR ---
[facility] CALLED FOR TRANSPORT ETA 10 MIN PER JANINE
--- NOTE | 2022-01-09 14:36 | NUR ---
PICKED UP BY [id number] IN STABLE CONDITION
--- NOTE | 2022-01-09 14:58 | NUR ---
Patient discharged to home in stable condition. Written and verbal after care instructions given. Patient verbalizes understanding of instruction.
[2022-01-09 14:59] VITALS: BP 135/77
== END 2022-01-09 15:00 ==
LOC: ER 10:43
DX: S01.111A Laceration without foreign body of right eyelid and periocular area, initial encounter (principal); R51.9 Headache, unspecified; I10 Essential (primary) hypertension; F41.9 Anxiety disorder, unspecified; F32.9 Major depressive disorder, single episode, unspecified; Z79.899 Other long term (current) drug therapy; W18.30XA Fall on same level, unspecified, initial encounter; Y93.89 Activity, other specified; Y92.89 Other specified places as the place of occurrence of the external cause; Y99.8 Other external cause status
CPT/HCPCS: 99284; 72125; 12013; 90471; 90715; 70450; 70486; A6403; J3490

== ENCOUNTER 2024-03-04 12:00 | Inpatient (IN) | payer MEDICARE, OTHER ==
[~2024-03-04] VITALS: Ht 160 cm; Wt 59.0 kg
[~2024-03-04 12:00] MED LIST changes: +ARIPIPRAZOLE 5 MG TABLET PO SCH
[2024-03-04] MEDS: PIPERACILLIN /TAZOBACTAM 3.375 G in IV D5W 50 ML IV ONE (12:30)
[2024-03-04] MEDS: IV NS 0.9% 1,000 ML BAG IV ONE (12:30)
[2024-03-04 13:04] LABS: BASOPHILS % (AUTO) 0.4 % (0.0-2.0); HEMATOCRIT 35 % (33-45); HEMOGLOBIN 12.1 g/dL (11.5-14.8); LYMPHOCYTES # (AUTO) 0.6 K/uL (0.8-4.8); LYMPHOCYTES % (AUTO) 8.9 % (20.0-44.0); MEAN CORPUSCULAR HEMOGLOBIN 30 PG (26.0-33.0); MEAN CORPUSCULAR HGB CONC 34 g/dl (31.0-36.0); MEAN CORPUSCULAR VOLUME 88 fL (82-100); MONOCYTES # (AUTO) 0.4 K/uL (0.1-1.30); MONOCYTES % (AUTO) 6.6 % (2.0-12.0); NEUTROPHILS # (AUTO) 5.3 K/uL (1.8-8.9); NEUTROPHILS % (AUTO) 84.1 % (43.0-81.0); PLATELET COUNT (AUTO) 87 K/uL (150-450); WHITE BLOOD COUNT (AUTO) 6.2 K/uL (4.3-11.0)
[2024-03-04 13:07] LABS: ALANINE AMINOTRANSFERASE 37 U/L (12-78); ALBUMIN 2.8 g/dL (3.4-5.0); ALKALINE PHOSPHATASE 92 U/L (46-116); ASPARTATE AMINOTRANSFERASE 37 U/L (15-37); BILIRUBIN,DIRECT 0.3 mg/dL (0.0-0.2); BILIRUBIN,TOTAL 0.8 mg/dL (0.2-1.0); CALCIUM, SERUM 8.3 mg/dL (8.5-10.1); CARBON DIOXIDE 28 mmol/L (21-32); CHLORIDE 102 mmol/L (98-107); CREATININE 0.8 mg/dL (0.6-1.3); GLUCOSE 159 mg/dL (74-106); POTASSIUM 2.9 mmol/L (3.5-5.1); SODIUM SERUM 137 mmol/L (136-145); TOTAL PROTEIN, SERUM 7.7 g/dL (6.4-8.2); UREA NITROGEN, BLOOD 17 mg/dL (7-18)
[2024-03-04 13:12] LABS: LACTIC ACID 1.7 mmol/L (0.4-2.0)
[2024-03-04] MEDS: VANCOMYCIN 1 GM in IV D5W 250 ML IV ONE (13:15)
[2024-03-04 13:17] LABS: INR 1.21 (0.91-1.10); PARTIAL THROMBOPLASTIN TIME 26.9 SEC (24.3-34.3); PROTHROMBIN TIME 12.7 SECS (9.2-11.1)
[2024-03-04] MEDS ORDERED: ACET-2030 PO (13:33)
[2024-03-04] MEDS ORDERED: MULT-213 PO (13:33)
[2024-03-04] MEDS ORDERED: NA P133E RC (13:33)
[2024-03-04 13:34] LABS: BAND % (MANUAL) 5 % (0.0-5.0); LYMPHOCYTES % (MANUAL) 13 % (16-48); MONOCYTES % (MANUAL) 6 % (0-11.0); NEUTROPHILS % (MANUAL) 76 (42-76)
[2024-03-04 13:36] LABS: PLATELET ESTIMATE DECREASED
[2024-03-04 13:37] LABS: ANISOCYTOSIS 1+
[2024-03-04] MEDS: POTASSIUM CHLORIDE 20 MEQ POWDER PACKET PO ONE (14:00)
[2024-03-04 16:35] VITALS: BP 133/75; TEMP 99.3; O2SAT 97
[2024-03-04] MEDS ORDERED: ONDANSETRON HCL/PF 4 MG/2 ML VIAL IVP PRN (17:00)
[2024-03-04] MEDS ORDERED: ZOLPIDEM TARTRATE 5 MG TABLET PO PRN (17:00)
[2024-03-04] MEDS ORDERED: ACETAMINOPHEN ES 500 MG TABLET PO PRN (17:00)
[2024-03-04] MEDS ORDERED: HYDROCODONE/APAP 5/325MG TABLET PO PRN (17:00)
[2024-03-04] MEDS ORDERED: MAGNESIUM HYDROXIDE 30 ML UDC PO PRN ×2 (17:00)
[2024-03-04] MEDS ORDERED: ACETAMINOPHEN 325 MG TABLET PO PRN (17:00)
[2024-03-04] MEDS ORDERED: MAG HYDROX/AL HYDROX/SIMETH 30 ML UDC PO PRN (17:00)
[2024-03-04] MEDS ORDERED: NA PHOS,M-B/NA PHOS,DI-BA 1 EA ENEMA RC PRN (17:00)
[2024-03-04] MEDS: IV NS 0.9% 1,000 ML IV PRN (17:53)
[2024-03-04] MEDS: ARIPIPRAZOLE 5 MG TABLET PO SCH (18:06)
[2024-03-04] MEDS: PIPERACILLIN /TAZOBACTAM 3.375 G in IV D5W 100 ML IV SCH (20:07)
[2024-03-04 21:00] VITALS: BP 121/54; TEMP 100.4
[2024-03-04] MEDS ORDERED: PIPERACILLIN /TAZOBACTAM 3.375 G in IV D5W 50 ML IV SCH (21:00)
[2024-03-04] MEDS: VANCOMYCIN 500 MG in IV D5W 100ml IV SCH (21:22)
[2024-03-05] VITALS: BP 107/51; TEMP 99; O2SAT 93
[2024-03-05 05:00] VITALS: BP 104/51; TEMP 98.6; O2SAT 95
[2024-03-05 06:42] LABS: BASOPHILS % (AUTO) 0.3 % (0.0-2.0); EOSINOPHILS % (AUTO) 0.5 % (0.0-6.0); HEMATOCRIT 31 % (33-45); HEMOGLOBIN 10.6 g/dL (11.5-14.8); LYMPHOCYTES # (AUTO) 0.9 K/uL (0.8-4.8); LYMPHOCYTES % (AUTO) 25.8 % (20.0-44.0); MEAN CORPUSCULAR HEMOGLOBIN 31 PG (26.0-33.0); MEAN CORPUSCULAR HGB CONC 35 g/dl (31.0-36.0); MEAN CORPUSCULAR VOLUME 89 fL (82-100); MONOCYTES # (AUTO) 0.3 K/uL (0.1-1.30); MONOCYTES % (AUTO) 7.7 % (2.0-12.0); NEUTROPHILS # (AUTO) 2.2 K/uL (1.8-8.9); NEUTROPHILS % (AUTO) 65.7 % (43.0-81.0); PLATELET COUNT (AUTO) 65 K/uL (150-450); RED BLOOD CELL COUNT(AUTO) 3.47 MIL/uL (4.0-5.2); RED CELL DISTRIBUTION WIDTH 13.8 % (11.5-15.0); WHITE BLOOD COUNT (AUTO) 3.4 K/uL (4.3-11.0)
[2024-03-05 06:51] LABS: CALCIUM, SERUM 7.8 mg/dL (8.5-10.1); CREATININE 0.6 mg/dL (0.6-1.3); MAGNESIUM 1.8 mg/dL (1.8-2.4); PHOSPHORUS 2.8 mg/dL (2.5-4.9); POTASSIUM 2.9 mmol/L (3.5-5.1)
[2024-03-05 07:00] VITALS: BP 103/53; TEMP 97.5; O2SAT 96
[2024-03-05 07:24] LABS: THYROID STIMULATING HORMONE 2.22 uIU/mL (0.358-3.74)
[2024-03-05] MEDS: MULTIVITAMINS,THERAGRAN 1 UDTAB TABLET PO SCH (08:14)
[2024-03-05] MEDS: PANTOPRAZOLE 40 MG TABLET.DR PO SCH (08:14)
[2024-03-05] MEDS: DOCUSATE SODIUM 100 MG CAPSULE PO SCH (08:14)
[2024-03-05] MEDS: ARIPIPRAZOLE 5 MG TABLET PO SCH (08:14)
[2024-03-05] MEDS: VENLAFAXINE XR 37.5 MG CAP.SR.24H PO SCH (08:37)
[2024-03-05 08:48] LABS: ANISOCYTOSIS 1+; LYMPHOCYTES % (MANUAL) 29 % (16-48); MONOCYTES % (MANUAL) 11 % (0-11.0); NEUTROPHILS % (MANUAL) 60 (42-76); PLATELET ESTIMATE DECREASED
[2024-03-05] MEDS: POTASSIUM CHLORIDE 20 MEQ TAB.PRT.SR PO ONE ×3 (10:06→16:21)
[2024-03-05 16:00] VITALS: BP 132/54; TEMP 99.1; O2SAT 95
[2024-03-05 20:00] VITALS: BP 94/58; TEMP 100.2; O2SAT 93
[2024-03-05] MEDS: VANCOMYCIN 750 MG in IV D5W 250 ML IV SCH (20:31)
[2024-03-05 21:30] VITALS: BP 105/62; TEMP 98.4; O2SAT 94
[2024-03-06 07:00] VITALS: BP 112/52; TEMP 98; O2SAT 93
[2024-03-06 07:31] LABS: CREATININE 0.6 mg/dL (0.6-1.3); POTASSIUM 3.8 mmol/L (3.5-5.1)
[2024-03-06] MEDS ORDERED: IPRATROPIUM NEB FS 0.5 MG/2.5 ML AMPUL.NEB NEB PRN (08:30)
[2024-03-06] MEDS ORDERED: ALBUTEROL FS 2.5 MG/3 ML VIAL.NEB NEB PRN (08:30)
[2024-03-06 16:00] VITALS: BP 129/62; TEMP 97.9; O2SAT 94
[2024-03-06] MEDS: ACETAMINOPHEN 325 MG TABLET PO PRN (19:28)
[2024-03-06 20:00] VITALS: BP 119/68; TEMP 102.9; O2SAT 94
[2024-03-07 06:51] LABS: CALCIUM, SERUM 8.2 mg/dL (8.5-10.1); CREATININE 0.6 mg/dL (0.6-1.3)
[2024-03-07 08:24] VITALS: BP 134/70; TEMP 97.7; O2SAT 94
[2024-03-07] MEDS ORDERED: POTASSIUM CHLORIDE 20 MEQ TAB.PRT.SR PO ONE ×2 (09:00→16:00)
[2024-03-07] MEDS ORDERED: POTASSIUM CHLORIDE 20 MEQ POWDER PACKET PO ONE (09:30)
[2024-03-07 09:35] LABS: BASOPHILS % (AUTO) 0.4 % (0.0-2.0); EOSINOPHILS % (AUTO) 1.1 % (0.0-6.0); HEMATOCRIT 32 % (33-45); HEMOGLOBIN 10.7 g/dL (11.5-14.8); LYMPHOCYTES # (AUTO) 0.4 K/uL (0.8-4.8); LYMPHOCYTES % (AUTO) 25.6 % (20.0-44.0); MEAN CORPUSCULAR HEMOGLOBIN 29 PG (26.0-33.0); MEAN CORPUSCULAR HGB CONC 34 g/dl (31.0-36.0); MEAN CORPUSCULAR VOLUME 86 fL (82-100); MONOCYTES # (AUTO) 0.2 K/uL (0.1-1.30); MONOCYTES % (AUTO) 12.5 % (2.0-12.0); NEUTROPHILS # (AUTO) 0.9 K/uL (1.8-8.9); NEUTROPHILS % (AUTO) 60.4 % (43.0-81.0); PLATELET COUNT (AUTO) 61 K/uL (150-450); RED BLOOD CELL COUNT(AUTO) 3.68 MIL/uL (4.0-5.2); RED CELL DISTRIBUTION WIDTH 13.3 % (11.5-15.0)
[2024-03-07 09:38] LABS: WHITE BLOOD COUNT (AUTO) 1.4 K/uL (4.3-11.0)
[2024-03-07] MEDS: POTASSIUM CHLORIDE 20 MEQ POWDER PACKET GT ONE ×2 (09:54→16:28)
[2024-03-07 10:35] LABS: PLATELET ESTIMATE DECREASED
[2024-03-07 10:36] LABS: EOSINOPHILS % (MANUAL) 1 % (0-4); LYMPHOCYTES % (MANUAL) 30 % (16-48); MONOCYTES % (MANUAL) 7 % (0-11.0); NEUTROPHILS % (MANUAL) 62 (42-76); OVALOCYTES 1+
[2024-03-07] MEDS: CEFEPIME 2 GM in IV D5W 100 ML IV SCH (11:46)
[2024-03-07 16:22] VITALS: BP_SYST 116; BP_SYST 154; BP_DIAS 62; BP_DIAS 73; TEMP 97.7; O2SAT 95
[2024-03-07 20:00] VITALS: BP 113/73; TEMP 100.6; O2SAT 93
[2024-03-08 08:30] VITALS: BP 103/46; TEMP 98.1; O2SAT 94
[2024-03-08 11:50] LABS: THYROID STIMULATING HORMONE 2.62 uIU/mL (0.358-3.74)
[2024-03-08 13:56] LABS: HIV-1 p24 ANTIGEN NON REACTIVE (NONREACTIVE); HIV-1/2 ANTIBODY NON REACTIVE (NONREACTIVE)
[2024-03-08] MEDS ORDERED: ALPRAZOLAM 0.25 MG TABLET PO PRN (15:00)
[2024-03-08 16:00] VITALS: BP 106/63; TEMP 98.4; O2SAT 94
[2024-03-08 20:00] VITALS: BP 121/77; TEMP 98.8; O2SAT 93
[2024-03-09 07:09] LABS: CALCIUM, SERUM 8.2 mg/dL (8.5-10.1); CREATININE 0.6 mg/dL (0.6-1.3); POTASSIUM 3.1 mmol/L (3.5-5.1)
[2024-03-09 07:19] LABS: BASOPHILS % (AUTO) 0.7 % (0.0-2.0); EOSINOPHILS % (AUTO) 1.5 % (0.0-6.0); HEMATOCRIT 34 % (33-45); HEMOGLOBIN 11.5 g/dL (11.5-14.8); LYMPHOCYTES # (AUTO) 0.7 K/uL (0.8-4.8); LYMPHOCYTES % (AUTO) 30.7 % (20.0-44.0); MEAN CORPUSCULAR HEMOGLOBIN 30 PG (26.0-33.0); MEAN CORPUSCULAR HGB CONC 34 g/dl (31.0-36.0); MEAN CORPUSCULAR VOLUME 87 fL (82-100); MONOCYTES # (AUTO) 0.3 K/uL (0.1-1.30); NEUTROPHILS # (AUTO) 1.3 K/uL (1.8-8.9); NEUTROPHILS % (AUTO) 55.1 % (43.0-81.0); PLATELET COUNT (AUTO) 97 K/uL (150-450); RED BLOOD CELL COUNT(AUTO) 3.85 MIL/uL (4.0-5.2); RED CELL DISTRIBUTION WIDTH 13.8 % (11.5-15.0); WHITE BLOOD COUNT (AUTO) 2.4 K/uL (4.3-11.0)
[2024-03-09] MEDS: Z GUARD REMEDY 4 OZ OINT TP PRN (10:17)
[2024-03-09] MEDS: POTASSIUM CHLORIDE 20 MEQ TAB.PRT.SR PO SCH (10:25)
[2024-03-09 11:47] LABS: ANISOCYTOSIS 1+; EOSINOPHILS % (MANUAL) 2 % (0-4); LYMPHOCYTES % (MANUAL) 27 % (16-48); MONOCYTES % (MANUAL) 12 % (0-11.0); NEUTROPHILS % (MANUAL) 59 (42-76); PLATELET ESTIMATE DECREASED
[2024-03-09 13:07] LABS: FOLIC ACID 12.9 ng/mL (>3.0)
[2024-03-09 20:00] VITALS: BP 102/61; TEMP 97.7; O2SAT 93
[2024-03-10 08:37] VITALS: BP 105/60; TEMP 98.4; O2SAT 94
[2024-03-10 16:01] VITALS: BP 120/60; TEMP 98.2; O2SAT 94
[2024-03-14 05:07] LABS: VITAMIN B1 THIAMINE,WB 113.1 nmol/L (66.5-200.0)
== END 2024-03-10 17:00 | DRG 177 ==
LOC: ER 12:08 → TELE 15:36 → MED 03-05 14:12
PROVIDERS: ADMIT Nurse Practitioner Acute Care; ATTEND Nurse Practitioner Acute Care
DX: J15.69 Pneumonia due to other Gram-negative bacteria (principal); G93.41 Metabolic encephalopathy; D68.59 Other primary thrombophilia; F02.83 Dementia in other diseases classified elsewhere, unspecified severity, with mood disturbance; J15.9 Unspecified bacterial pneumonia; G30.9 Alzheimer's disease, unspecified; F32.A Depression, unspecified; E87.6 Hypokalemia; D70.9 Neutropenia, unspecified; I10 Essential (primary) hypertension; F41.9 Anxiety disorder, unspecified; Y95 Nosocomial condition; R62.7 Adult failure to thrive; Z68.23 Body mass index [BMI] 23.0-23.9, adult; Z74.09 Other reduced mobility; Z79.899 Other long term (current) drug therapy
CPT/HCPCS: 36415; 70450-TC; 71045-TC; 80048-TC; 80061-TC; 80076-TC; 80202-TC; 82607-TC; 83605-TC; 83735-TC; 83921; 84100-TC; 84425; 84443-TC; 84484-TC; 85025-TC; 85730-TC; 86803; 87040-TC; 87081-TC; 87806; 92526; 92611-TC; 97110-TC; 97530-TC; A4223; G0378; J0692; J2543; J3370; J3371; J7030; J7050; J7060